=== PATIENT | female | born 1960 | race Caucasian/White ===

== ENCOUNTER 2018-01-05 10:55 | Emergency (ER) | payer MEDICARE, BC ==
[2018-01-05] MEDS ORDERED: 0.9 % SODIUM CHLORIDE 1,000 ML BAG IV ONE (10:59)
[2018-01-05] MEDS ORDERED: ONDANSETRON HCL IV 4 MG/2 ML VIAL IVP ONE (10:59)
[2018-01-05] MEDS ORDERED: KETOROLAC 30 MG/ML VIAL IVP ONE (10:59)
--- NOTE | 2018-01-05 11:03 | Emergency Department Record ---
History of Present Illness - General Chief complaint: Flank Pain Stated complaint: left kidney pain Time Seen by Provider: 01/05/18 10:58 Source: Patient Mode of Arrival: Ambulatory Limitations: No limitations - History of Present Illness Initial comments: 57 yo male presents with left flank pain for 1 day. The pain is sharp and seems to come and go. No fever, dysuria or hematuria. She did have some nausea. No vomiting. No history of trauma. PCP is Dr Milian. No abdominal pain. No diarrhea. The pain is inconsistent in that it hurts only sometime with movement. No leg radiation. MD Complaint: Other (Left Flank pain) -: Days(s) (1) Radiation: L flank Severity: Moderate Quality: Aching, Sharp Consistency: Intermittent Improves with: None Worsens with: None Patient : No Associated Symptoms: Loss of appetite - Related Data Previous Rx's Medication Instructions Recorded Cyclobenzaprine HCl [Flexeril] 10 mg PO TID #20 tablet 01/05/18 Naproxen [Naprosyn] 500 mg PO Q12H #20 tab. 01/05/18 Allergies Allergy/AdvReac Type Severity Reaction Status Date / Time Sulfa (Sulfonamide Allergy Intermediate HIVES Verified 01/05/18 11:02 Antibiotics) bee lotion Allergy Intermediate SWELLING Uncoded 01/05/18 11:02 (GENERAL) bees Allergy Intermediate SWELLING Uncoded 01/05/18 11:02 (GENERAL) Review of Systems Constitutional: Denies: Chills, Fever, Malaise, Weakness Eyes: Denies: Eye discharge ENT: Denies: Congestion, Throat pain Respiratory: Denies: Cough, Dyspnea, Hemoptysis, Stridor, Wheezes Cardiovascular: Denies: Chest pain, Palpitations, Syncope Endocrine: Denies: Fatigue, Polydipsia, Polyuria Gastrointestinal: Denies: Abdominal pain, Diarrhea, Nausea, Vomiting Genitourinary: Denies: Dysuria, Hematuria, Urgency Musculoskeletal: Reports: Back pain. 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) Hx Headaches: Yes - GI Hx GI Disorders: No - Hx Genitourinary Disorders: Yes - ENDOCRINE Hx Endocrine Disorders: No - MUSCULOSKELETAL Hx Musculoskeletal Disorders: Yes Hx Arthritis: Yes (knees, right foot) - PSYCH Hx Psych Problems: No - HEMATOLOGY/ONCOLOGY Hx Hematology/Oncology Disorders: No Family Medical History Hx Cancer: Mother, Brother/Sister *Cancer Comment: uterine, breast Hx Dementia: Mother Hx Stroke: Mother *Stroke Comment: r/t cancer treatment Physical Exam - General General Appearance: Alert, Oriented x3, Cooperative, No acute distress Limitations: No limitations - Head Head exam: Normal inspection - Eye Eye exam: Normal appearance, PERRL. negative: Conjunctival injection, Scleral icterus - ENT ENT exam: Normal exam Ear exam: Normal external inspection Nasal Exam: Normal inspection Mouth exam: Normal external inspection - Neck Neck exam: Normal inspection, Full ROM. negative: Tenderness - Respiratory Respiratory exam: Normal lung sounds bilaterally. negative: Respiratory distress - Cardiovascular Cardiovascular Exam: Regular rate, Normal rhythm, Normal heart sounds - GI/Abdominal GI/Abdominal exam: Soft. negative: Rebound, Rigid, Tenderness - Rectal Rectal exam: Deferred - exam: Deferred - Extremities Extremities exam: Normal inspection, Full ROM, Normal capillary refill. negative: Tenderness - Back Back exam: Reports: Full ROM. Denies: CVA tenderness (R), CVA tenderness (L), Muscle spasm, Paraspinal tenderness, Tenderness, Vertebral tenderness - Neurological Neurological exam: Alert, Normal gait, Oriented X3 - Psychiatric Psychiatric exam: Normal affect, Normal mood - Skin Skin exam: Dry, Intact, Normal color, Warm Course - Reevaluation(s) Reevaluation #1: The examination was a non tender back, no shingles. Given it is not tender stone is possible. CT ordered. 01/05/18 11:02 01/05/18 12:13 The CBC,BMP, and UA reviewed No acute abnormality 01/05/18 12:[address] scan of the abdomen and pelvis are negative except for abundant stool Medical Decision Making - Lab Data Result diagrams: 01/05/18 11:10 01/05/18 11:10 Disposition Disposition: Discharge Clinical Impression: Flank pain Back pain Qualifiers: Back pain location: low back pain Chronicity: acute Back pain laterality: left Sciatica presence: without sciatica Qualified Code(s): M54.5 - Low back pain Disposition: Home, Self-Care Condition: (1) Good Instructions: Flank Pain (ED) Additional Instructions: Call your doctor for close follow up Return if you have uncontrolled pain, any new symptoms or concern, fever, urinary changes, abdominal pain Prescriptions: Cyclobenzaprine HCl [Flexeril] 10 mg PO TID #20 tablet Naproxen [Naprosyn] 500 mg PO Q12H #20 tab.dr Forms: Patient Portal Access Time of Disposition: 12:23 Quality - Quality Measures Quality Measures: N/A - Blood Pressure Screening Does Patient Have Any of the Following: No Blood Pressure Classification: Pre-Hypertensive BP Reading Systolic Measurement: 123 Diastolic Measurement: 89 Screening for High Blood Pressure: < Pre-Hypertensive BP, F/U Documented > [ [id number]] Pre-Hypertensive Follow-up Interventions: Referral to alternative/primary care provider.
[2018-01-05 11:32] LABS: BASO % 0.3 % (0-6); EOS % 1.5 % (0-6); GRAN % 65.3 % (47-80); HEMATOCRIT 41.4 % (35.0-47.0); HEMOGLOBIN 14.2 gm/dl (11.6-16.0); LYMPH % 26.6 % (16-45); MEAN CELL VOLUME 87.7 fl (81-97); MEAN CORPUSCULAR HEMOGLOBIN 30.1 pg (27-33); MEAN CORPUSCULAR HGB CONC 34.3 g/dl (32-36); MEAN PLATELET VOLUME 9.3 fl (7.4-10.4); MONO % 6.3 % (0-9); PLATELET COUNT 244 K/uL (130-400); RED BLOOD COUNT 4.72 M/uL (3.80-5.40); RED CELL DISTRIBUTION WIDTH 12.5 % (11.5-14.5); URINE APPEARANCE CLEAR; URINE BILIRUBIN NEGATIVE (NEGATIVE); URINE BLOOD NEGATIVE (NEGATIVE); URINE COLOR YELLOW; URINE GLUCOSE (UA) NEGATIVE (NEGATIVE); URINE KETONE NEGATIVE (NEGATIVE); URINE LEUKOCYTE ESTERASE NEGATIVE (NEGATIVE); URINE NITRITE NEGATIVE (NEGATIVE); URINE PROTEIN NEGATIVE (NEGATIVE); URINE UROBILINOGEN 0.2 E.U./dL (0.20 - 1.00); WHITE BLOOD COUNT W/O DIFF 3.9 K/uL (4.2-12.2)
[2018-01-05 11:40] LABS: BLOOD UREA NITROGEN 16 mg/dL (6-20); CREATININE 0.6 mg/dL (0.5-0.9); EST GLOMERULAR FILTRATION RATE > 60 mL/min
[2018-01-05 11:43] LABS: GLUCOSE,RANDOM 103 mg/dL (74-109)
--- NOTE | 2018-01-06 07:51 | CT SCAN REPORT ---
EXAM: CT OF THE ABDOMEN AND PELVIS WITHOUT CONTRAST HISTORY: LOWER BACK PAIN. TECHNIQUE: CT of the abdomen and pelvis was performed without oral or IV contrast. This limits evaluation of bowel and solid visceral organs. Comparison: None. FINDINGS: Limited evaluation of the lung bases is unremarkable. The osseous structures are grossly intact. Limited evaluation of the liver, spleen, adrenal glands, pancreas, and kidneys is unremarkable. The gallbladder is present, grossly unremarkable. Negative for urinary tract calculus or hydronephrosis. Normal appendix. There is a large amount of stool in the colon. No free air or free fluid. The urinary bladder is not distended, limiting its evaluation. Tiny fat containing right inguinal hernia. There is a tiny fat containing umbilical hernia. IMPRESSION: NEGATIVE FOR ACUTE INTRAABDOMINAL/PELVIC PROCESS. LARGE AMOUNT OF STOOL IN THE COLON. JOB NUMBER: [id number] MTDD
== END 2018-01-05 12:56 | disposition home or self-care (01) ==
LOC: ER 10:55
DX: M54.5 Low back pain (principal); K59.00 Constipation, unspecified
CPT/HCPCS: 99284 ×2; 96374; 96375; 85025; 80048; 81003; 74176; J1885; J2405; J7030